=== PATIENT | female | born 1980 | race Caucasian/White ===

== ENCOUNTER → 2021-06-21 | Outpatient (CLI) | payer OTHER ==
[~2021-06-21] MED LIST: IBUP600T26 PO; MAPA500T17 PO; PRENTAB66 PO
--- NOTE | 2021-06-21 09:38 | REP ---
INDICATION: BASELINE RIGHT BREAST LUMP; RIGHT BREAST LUMP. Patient reports a painful lump in the right breast for 1.5 months. She also reports chronic bilateral nipple retraction. COMPARISON: No comparison breast imaging. TECHNIQUE: Bilateral CC and MLO) view(s) were taken. Routine views of the right breast were augmented. AA opaque skin marker is affixed to the skin at site of the palpable lump and magnified focal spot-compression CC and MLO views are obtained. A true mediolateral view of the right breast is obtained. 3D tomography. Whole right breast and targeted right breast sonography is carried out. FINDINGS: Scattered fibroglandular elements are seen bilaterally. No suspicious or dominant density is seen. No microcalcification or architectural distortion is seen. No worrisome skin change is appreciated. 3-D tomosynthesis shows no additional finding. No mammographic evidence of mass or asymmetric density is seen at the site of the palpable lump in the right breast on routine or diagnostic views. Subareolar regions are unremarkable and symmetric. The [place] volumetric breast density pattern is B. Right breast sonography: Sonographic imaging at targeted at the area of the palpable lump demonstrates a 0.5 x 0.4 x 0.3 cm hypoechoic nodule superficially located at the 1 o'clock position, 7 cm from the nipple. This has a intermediate shear wave elastography number of 32 K PA. Its long axis is parallel to the skin. It does not meet criteria of a simple cyst. There are low level internal echoes. Scanning throughout the remainder of the right breast shows heterogeneous fibroglandular background echotexture but no other significant sonographic finding.. IMPRESSION: BIRADS/ACR category 4 suspicious right breast sonographic findings. 0.5 cm hypoechoic lesion is seen at the site of the palpable lump on ultrasound. No mammographic correlate.. This patient's Tyrer-Cuzick lifetime breast cancer risk assessment score is 18.8%. This mammogram was interpreted with the aid of an FDA-approved computer-aided detection system. The patient states she had a clinical breast exam in April of 2021. The patient letter being requested is M4. RECOMMENDATION: Ultrasound-guided needle biopsy of the right breast nodule with marker clip placement and post clip placement mammography is recommended. <Electronically signed by Ifeanyi Magdaleno > 06/21/21 09
== END ==
LOC: M WHC 07:34
PROVIDERS: ATTEND Nurse Practitioner
DX: D24.1 Benign neoplasm of right breast (principal); R92.8 Other abnormal and inconclusive findings on diagnostic imaging of breast
CPT/HCPCS: 76642; 77066; G0279

== ENCOUNTER → 2024-11-22 | Outpatient (CLI) | payer OTHER | LOC: M RAD 08:13 | PROVIDERS: ATTEND Nurse Practitioner Family | DX: N92.1 Excessive and frequent menstruation with irregular cycle (principal); N85.8 Other specified noninflammatory disorders of uterus ==

== ENCOUNTER → 2024-12-20 | Outpatient (REF) | payer OTHER | LOC: M SFHCWAGY 10:13 | PROVIDERS: ATTEND Nurse Practitioner Family | DX: Z12.4 Encounter for screening for malignant neoplasm of cervix (principal); R87.615 Unsatisfactory cytologic smear of cervix; R87.618 Other abnormal cytological findings on specimens from cervix uteri ==

== ENCOUNTER → 2024-12-20 | Outpatient (CLI) | payer OTHER | LOC: M WHC 07:23 | PROVIDERS: ATTEND Nurse Practitioner Family | DX: Z12.31 Encounter for screening mammogram for malignant neoplasm of breast (principal); R92.323 Mammographic fibroglandular density, bilateral breasts ==

== ENCOUNTER → 2024-12-22 | Outpatient (CLI) | payer OTHER ==
[2024-12-22 13:12] LABS: HEMATOCRIT 43.3 % (36.0-47.0); HEMOGLOBIN 13.9 g/dl (12.0-15.5); MEAN CORPUSCULAR HEMOGLOBIN 27.8 pg (27.0-33.0); MEAN CORPUSCULAR HGB CONC 32.1 g/dl (32.0-36.5); MEAN CORPUSCULAR VOLUME 86.6 fl (80.0-96.0); PLATELET COUNT, AUTOMATED 377 10^3/uL (150-450); WHITE BLOOD COUNT 8.7 10^3/uL (4.0-10.0)
[2024-12-22 13:33] LABS: HEMOGLOBIN A1c 4.6 % (4.0-6.0)
[2024-12-22 13:39] LABS: BILIRUBIN,TOTAL 0.5 MG/DL (0.3-1.2); CALCIUM LEVEL 10.1 MG/DL (8.5-10.1); CREATININE FOR GFR 0.96 MG/DL (0.55-1.30); GLOMERULAR FILTRATION RATE 74.8 (>58); POTASSIUM SERUM 4.8 MMOL/L (3.5-5.1); TOTAL PROTEIN 7.2 G/DL (5.7-8.2)
[2024-12-22 13:41] LABS: THYROID STIMULATING HORMONE 4.508 uIU/ML (0.55-4.78)
== END ==
LOC: M PLALAB 10:36
PROVIDERS: ATTEND Obstetrics & Gynecology
DX: N93.9 Abnormal uterine and vaginal bleeding, unspecified (principal)

== ENCOUNTER → 2024-12-28 | Outpatient (REF) | payer OTHER | LOC: M SFHCWAGY 10:14 | PROVIDERS: ATTEND Nurse Practitioner Family | DX: Z12.4 Encounter for screening for malignant neoplasm of cervix (principal); R87.615 Unsatisfactory cytologic smear of cervix ==